=== PATIENT | male | born 1970 | race Caucasian/White ===

== ENCOUNTER 2019-12-04 15:22 | Emergency (ER) | payer OTHER ==
[~2019-12-04] VITALS: Ht 177.8 cm; Wt 70.3 kg
[2019-12-04 15:23] VITALS: Ht 177.8 cm; Wt 70.3 kg
[2019-12-04 17:52] VITALS: BP 121/85
== END 2019-12-04 17:52 | disposition home or self-care (01) ==
LOC: ED 15:22
DX: S01.01XA Laceration without foreign body of scalp, initial encounter (principal); W18.30XA Fall on same level, unspecified, initial encounter; Y93.89 Activity, other specified; Y92.89 Other specified places as the place of occurrence of the external cause; Y99.8 Other external cause status
CPT/HCPCS: 90715